=== PATIENT | female | born 1970 | race Caucasian/White ===

== ENCOUNTER 2024-11-20 18:47 | Emergency (ER) | payer BC ==
[~2024-11-20] VITALS: Ht 157.5 cm; Wt 49.0 kg
[2024-11-20] MEDS ORDERED: LEVO50TA8 PO (18:57)
[2024-11-20] MEDS ORDERED: TRAZ150T75 PO (18:57)
[2024-11-20] MEDS ORDERED: AMLO-212 PO (18:57)
[2024-11-20] MEDS ORDERED: DULO60CA45 PO (18:57)
[2024-11-20] MEDS ORDERED: GABA300C PO (18:57)
[2024-11-20] MEDS ORDERED: CARI1.5C (18:57)
[2024-11-20] MEDS ORDERED: KETOROLAC TROMETHAMINE 30 MG INJ ONE (19:38)
[2024-11-20] MEDS: KETOROLAC TROMETHAMINE 30 MG INJ IM ONE (19:38)
[2024-11-20 20:03] LABS: *BILIRUBIN,URIN NEGATIVE (NEGATIVE); *BLOOD, URINE NEGATIVE (NEGATIVE); *CLARITY,URINE CLEAR (CLEAR); *COLOR,URINE YELLOW (YELLOW); *KETONES,URINE 1+ (NEGATIVE); *PROTEIN,URINE NEGATIVE (NEGATIVE); *UROBILINOGEN,URINE 0.2 E.U./dl (NORMAL); LEUKOCYTE ESTERASE ,URINE NEGATIVE (NEGATIVE); NITRITE, URINE NEGATIVE (NEGATIVE); UGLUCOSE NEGATIVE (NEGATIVE)
[2024-11-20 20:07] LABS: *AMPHETAMINE, URINE NEGATIVE (NEGATIVE); *BARBITURATE, URINE NEGATIVE (NEGATIVE); *BENZODIAZEPINE, URINE NEGATIVE (NEGATIVE); *CANNABINOID, URINE POSITIVE (NEGATIVE); *COCCAINE, URINE NEGATIVE (NEGATIVE); *OPIATE, URINE NEGATIVE (NEGATIVE); *PHENCYCLIDINE SCREEN,URINE NEGATIVE (NEGATIVE); FENTANYL, URINE NEGATIVE (NEGATIVE)
[2024-11-20 20:17] LABS: SQUAMOUS EPITHELIAL CELL,UR MODERATE /HPF (NONE SEEN)
[2024-11-20] MEDS ORDERED: ACETAMINOPHEN/CODEINE 300-30 MG TABLET ONE (21:22)
[2024-11-20] MEDS: ACETAMINOPHEN/CODEINE 300-30 MG TABLET PO ONE (21:25)
[2024-11-20 21:57] VITALS: BP 152/81; TEMP 98; O2SAT 99
== END 2024-11-20 21:57 | disposition home or self-care (01) ==
LOC: ER 18:55
DX: M51.360 Other intervertebral disc degeneration, lumbar region with discogenic back pain only (principal); F32.A Depression, unspecified; E03.9 Hypothyroidism, unspecified; Z79.899 Other long term (current) drug therapy; Z88.2 Allergy status to sulfonamides
CPT/HCPCS: 99285; 72131; 96372; 80307; 81001; J1885; A4606; A4663